=== PATIENT | male | born 1955 | race Caucasian/White ===

== ENCOUNTER 2020-05-13 14:27 | Emergency (ER) | payer MEDICARE ==
[~2020-05-13] VITALS: Ht 170.2 cm; Wt 136.7 kg
[2020-05-13 15:37] LABS: BASOPHILS # (AUTO) 0.1 X10'3 (0-0.2); BASOPHILS % (AUTO) 0.7 % (0-1); EOSINOPHILS # (AUTO) 0.5 X10'3 (0-0.9); EOSINOPHILS % (AUTO) 4.6 % (0-6); HEMATOCRIT 46.6 % (42.0-52.0); HEMOGLOBIN 15.8 g/dl (14.0-17.9); LYMPHOCYTES # (AUTO) 4.6 X10'3 (1.1-4.8); MEAN CORPUSCULAR HEMOGLOBIN 32.4 PG (27.0-31.0); MEAN CORPUSCULAR VOLUME 95.5 FL (78-98); MONOCYTES # (AUTO) 1.1 X10'3 (0-0.9); MONOCYTES % (AUTO) 10.4 % (2-12); NEUTROPHILS # (AUTO) 4.7 X10'3 (1.8-7.7); NEUTROPHILS % (AUTO) 42.3 % (42-75); PLATELET COUNT 213 X10'3 (140-440); RED BLOOD COUNT 4.88 X10'6 (4.70-6.10); RED CELL DISTRIBUTION WIDTH 13.9 % (11.5-14.5)
[2020-05-13 15:52] LABS: ALBUMIN 3.7 G/DL (3.4-5.0); ANION GAP 4 (8-16); BLOOD UREA NITROGEN 15 MG/DL (7-18); BUN/CREATININE RATIO 13.3 (5.4-32.0); CALCIUM 8.8 MG/DL (8.5-10.1); CHLORIDE 104 MMOL/L (99-107); CREATININE 1.13 MG/DL (0.60-1.10); GLUCOSE 113 MG/DL (70-104); POTASSIUM 4.7 MMOL/L (3.5-5.1); SODIUM 140 MMOL/L (135-145); TOTAL CARBON DIOXIDE 31.6 MMOL/L (24-32); TROPONIN I < 0.04 NG/ML (0.0-0.05); eGFR 65 ML/MIN
[2020-05-13 17:51] VITALS: BP 161/82
== END 2020-05-13 17:59 | disposition home or self-care (01) ==
LOC: ER 14:28
DX: R00.1 Bradycardia, unspecified (principal); R11.2 Nausea with vomiting, unspecified; R19.7 Diarrhea, unspecified
CPT/HCPCS: 36415; 71046; 80048; 84484; 85025; 93005; 93306; 99285

== ENCOUNTER 2020-12-07 14:09 | Inpatient (IN) | payer MEDICARE, OTHER ==
[~2020-12-07] VITALS: Ht 170.2 cm; Wt 129.4 kg
[2020-12-07] VITALS (9 sets, daily range): BP systolic 118–151; BP diastolic 80–112
[2020-12-07 14:49] LABS: BASOPHILS # (AUTO) 0.1 X10'3 (0-0.2); BASOPHILS % (AUTO) 0.5 % (0-1); EOSINOPHILS # (AUTO) 0.1 X10'3 (0-0.9); EOSINOPHILS % (AUTO) 0.9 % (0-6); HEMATOCRIT 46.2 % (42.0-52.0); HEMOGLOBIN 15.8 g/dl (14.0-17.9); LYMPHOCYTES # (AUTO) 3.5 X10'3 (1.1-4.8); LYMPHOCYTES % (AUTO) 23.5 % (21-51); MEAN CORPUSCULAR HEMOGLOBIN 32.5 PG (27.0-31.0); MEAN CORPUSCULAR HGB CONC 34.3 g/dL (33.0-36.5); MEAN CORPUSCULAR VOLUME 94.7 FL (78-98); MEAN PLATELET VOLUME 7.9 FL (7.4-10.4); MONOCYTES # (AUTO) 1.5 X10'3 (0-0.9); MONOCYTES % (AUTO) 9.9 % (2-12); NEUTROPHILS # (AUTO) 9.8 X10'3 (1.8-7.7); NEUTROPHILS % (AUTO) 65.2 % (42-75); PLATELET COUNT 241 X10'3 (140-440); RED BLOOD COUNT 4.88 X10'6 (4.70-6.10); RED CELL DISTRIBUTION WIDTH 13.6 % (11.5-14.5); WHITE BLOOD COUNT 15.1 X10'3 (4.5-11.0)
[2020-12-07 15:06] LABS: ALANINE AMINOTRANSFERASE 25 U/L (12-78); ALBUMIN 3.4 G/DL (3.4-5.0); ALBUMIN/GLOBULIN RATIO 0.8 (1.1-1.5); ALKALINE PHOSPHATASE 63 IU/L (46-116); AMYLASE 26 U/L (25-115); ANION GAP 9 (8-16); ASPARTATE AMINO TRANSFERASE 13 U/L (10-37); BILIRUBIN,TOTAL 1.2 MG/DL (0.1-1.0); BLOOD UREA NITROGEN 17 MG/DL (7-18); BUN/CREATININE RATIO 14.2 (5.4-32.0); CHLORIDE 100 MMOL/L (99-107); GLUCOSE 120 MG/DL (70-104); LIPASE 82 U/L (73-393); SODIUM 137 MMOL/L (135-145); TOTAL PROTEIN 7.9 G/DL (6.4-8.2); eGFR 60 ML/MIN
[2020-12-07 15:20] LABS: CLARITY,URINE CLEAR (Clear); COLOR,URINE YELLOW (Yellow); GLUCOSE, URINE NEGATIVE (Neg); KETONES,URINE NEGATIVE (Neg); LEUKOCYTE ESTERASE ,URINE NEGATIVE (Neg); NITRITES, URINE NEGATIVE (Neg); OCCULT BLOOD,URINE TRACE-INTACT (Neg); PROTEIN,URINE NEGATIVE (Neg)
[2020-12-07 15:43] LABS: UA COLLECTION TYPE VOIDED
[2020-12-07 15:52] LABS: MUCUS STRANDS MODERATE /LPF (Neg); SQUAMOUS EPITHELIAL CELL,UR FEW /LPF (FEW)
[2020-12-07 15:53] LABS: BACTERIA,URINE 1+ /HPF (Neg); RBC,URINE 0-2 /HPF (0-2); WBC,URINE 0-4 /HPF (0-4)
[2020-12-07] MEDS ORDERED: piperacillin/tazo 3.375gm/50ml 50 ML IV ONE (15:55)
[2020-12-07] MEDS: diatr meglu/diatrizoate 30ml oral sol.-(3 dose) bottle PO SCH ×2 (16:25→17:10)
[2020-12-07] MEDS ORDERED: IOHEXOL 12MG/ML oral solution 500 ML BOTTLE PO ONE (16:40)
[2020-12-07] MEDS ORDERED: morphine 2 MG/ML inj. syringe IV PRN ×2 (16:50→19:45)
[2020-12-07] MEDS ORDERED: HYDROcodone/acetaminophen 10/325mg tab PO PRN ×2 (16:50→22:30)
[2020-12-07] MEDS ORDERED: HYDROcodone/acetaminophen 5mg/325mg tablet PO PRN (16:50)
[2020-12-07] MEDS ORDERED: ondansetron/PF 4mg/2ml inj IV PRN ×3 (16:50→22:30)
[2020-12-07] MEDS ORDERED: acetaminophen 650mg rectal suppository RC PRN (16:50)
[2020-12-07] MEDS ORDERED: mag hydrox/Alum hydrox/simeth 30ml oral suspension PO PRN (16:50)
[2020-12-07] MEDS ORDERED: magnesium hydroxide 30ml (MOM) UD suspension PO PRN (16:50)
[2020-12-07] MEDS ORDERED: potassium Cl 20 mEq SR tablet PO PRN ×2 (16:50)
[2020-12-07] MEDS ORDERED: potassium Cl 40MEQ/1/2NS 520ml 520 ML IV PRN ×2 (16:50)
[2020-12-07] MEDS ORDERED: magnesium 4gm in 100ml NS 100 ML IV PRN (16:50)
[2020-12-07] MEDS ORDERED: acetaminophen 325mg tablet PO PRN ×2 (16:50)
[2020-12-07] MEDS ORDERED: bisacodyl 10mg suppository rectal RC PRN (16:50)
[2020-12-07] MEDS ORDERED: diphenhydrAMINE 25mg capsule PO PRN (16:50)
[2020-12-07] MEDS ORDERED: magnesium Cl slow-release 64mg tablet PO PRN (16:50)
[2020-12-07] MEDS ORDERED: magnesium 2GM in 50ml NS 50 ML IV PRN (16:50)
[2020-12-07] MEDS ORDERED: LOSA25TA41 PO (17:20)
[2020-12-07] MEDS ORDERED: ASPI-611 PO (17:20)
[2020-12-07] MEDS ORDERED: iohexol 300mg/ml 100ml inj. ONE (17:51)
[2020-12-07] MEDS: normal saline 1000ml 1,000 ML IV SCH (18:38)
[2020-12-07] MEDS ORDERED: INDOCYANINE GREEN 25 MG/10 ML VIAL IV ONE (19:40)
[2020-12-07] MEDS ORDERED: meperidine/PF 25mg/ml syringe IV PRN ×3 (19:45)
[2020-12-07] MEDS ORDERED: acetaminophen 1,000mg/100ml IV 100 ML IV PRN (19:45)
[2020-12-07] MEDS ORDERED: hydrALAZINE 20mg/ml inj. IV PRN (19:45)
[2020-12-07] MEDS ORDERED: morphine 4 MG/ML inj SYRINge IV PRN (19:45)
[2020-12-07] MEDS ORDERED: ringers solution, lacted 1,000 ML IV SCH (19:45)
[2020-12-07] MEDS ORDERED: labetalol 20mg/4ml (5mg/ml) syringe IV PRN (19:45)
[2020-12-07] MEDS ORDERED: proCHLORperazine 10 MG/2 ml inj IV PRN (19:45)
[2020-12-07] MEDS ORDERED: midazolam 1 mg/ML 2ml injection ONE (19:52)
[2020-12-07] MEDS ORDERED: famotidine/PF 10 mg/ml inj IV ONE (19:54)
[2020-12-07] MEDS ORDERED: acetaminophen 1,000mg/100ml IV 100 ML IV ONE (19:54)
[2020-12-07] MEDS ORDERED: fentaNYL /PF 50mcg/ml 5ml ampule ONE (19:55)
[2020-12-07] MEDS ORDERED: LIDOcaine 2% 5ml jelly ONE (19:57)
[2020-12-07] MEDS ORDERED: sevoflurane 250ml liquid IH ONE (20:00)
[2020-12-07] MEDS ORDERED: rocuronium 10mg/ml inj IV ONE ×2 (20:33→22:01)
[2020-12-07] MEDS ORDERED: ondansetron/PF 4mg/2ml inj ONE (20:33)
[2020-12-07] MEDS ORDERED: ePHEDrine 50MG/ML INJ. ONE (20:33)
[2020-12-07] MEDS ORDERED: dexamethasone sod phosphate 4mg/ml inj. ONE (20:33)
[2020-12-07] MEDS ORDERED: propofol inj 20 ML IV ONE ×2 (20:33)
[2020-12-07] MEDS ORDERED: 0.9 % SODIUM CHLORIDE 10 ML VIAL ONE (20:33)
[2020-12-07] MEDS ORDERED: ceFOXitin 1000 MG inj ONE ×2 (20:33)
[2020-12-07] MEDS ORDERED: LIDOcaine 2% (20mg/ml) 5ml vial ONE (20:33)
[2020-12-07] MEDS ORDERED: BUPIVAcaine/PF 2.5 mg/ml (0.25%) 30ml vial ONE (20:46)
[2020-12-07] MEDS ORDERED: sugammadex 200mg/2ml injection IV ONE (22:00)
--- NOTE | 2020-12-07 22:26 | NUR ---
Received from OR via BED, accompanied by Anesthesiologist DR JHAVERI and report given by Anesthesiologist. PT DROWSY, DENIES PAIN, ABDOMEN W/3 LAP SITES W/BANDAIDS CDI, PREET TO BULB SX RIGHT ABDOMEN W/SANGUINOUS DRAINAGE. Addendum: 12/07/20 at 2241 by Brit Aragon RN Amended: Links added.
--- NOTE | 2020-12-07 23:15 | NUR ---
Received report from YUE Perea. Awaiting patient arrival to the floor.
--- NOTE | 2020-12-07 23:26 | NUR ---
Report called to receiving nurse. PT PAIN TOLERABLE, NAUSEA SUBSIDED. Transferred via BED, 1 BAG OF Belongings AND GLASSES SENT W/PT TO ROOM 350B. RECEIVING RN AT BEDSIDE TO RECEIVE PT, BLL, CALL LIGHT GIVEN, SIDE RAILS UP X 2. Special Issues communicated to receiving nurse. YES. Addendum: 12/07/20 at 2339 by Brit Aragon RN Amended: Links added.
[2020-12-08] VITALS (11 sets, daily range): BP systolic 109–145; BP diastolic 72–89
[2020-12-08] MEDS: K and/or MAG REPLACEMENT MC SCH ×3 (00:04→20:00)
[2020-12-08] MEDS: diatr meglu/diatrizoate 30ml oral sol.-(3 dose) bottle PO SCH (00:04)
[2020-12-08] MEDS: piperacillin/tazo 3.375gm/50ml 50 ML IV SCH ×4 (00:30→23:20)
[2020-12-08] MEDS: normal saline 1000ml 1,000 ML IV SCH ×3 (00:34→23:20)
[2020-12-08] MEDS: morphine 2 MG/ML inj. syringe IV PRN ×3 (04:29→13:53)
[2020-12-08 06:28] LABS: BASOPHILS % (AUTO) 0.3 % (0-1); EOSINOPHILS % (AUTO) 0 % (0-6); HEMATOCRIT 43.5 % (42.0-52.0); HEMOGLOBIN 14.9 g/dl (14.0-17.9); LYMPHOCYTES # (AUTO) 1.3 X10'3 (1.1-4.8); LYMPHOCYTES % (AUTO) 12.7 % (21-51); MEAN CORPUSCULAR HEMOGLOBIN 32.6 PG (27.0-31.0); MEAN CORPUSCULAR HGB CONC 34.3 g/dL (33.0-36.5); MEAN CORPUSCULAR VOLUME 95.1 FL (78-98); MONOCYTES # (AUTO) 0.4 X10'3 (0-0.9); MONOCYTES % (AUTO) 3.7 % (2-12); NEUTROPHILS # (AUTO) 8.7 X10'3 (1.8-7.7); NEUTROPHILS % (AUTO) 83.3 % (42-75); PLATELET COUNT 212 X10'3 (140-440); RED BLOOD COUNT 4.58 X10'6 (4.70-6.10); RED CELL DISTRIBUTION WIDTH 13.2 % (11.5-14.5); WHITE BLOOD COUNT 10.4 X10'3 (4.5-11.0)
[2020-12-08 06:53] LABS: ALANINE AMINOTRANSFERASE 51 U/L (12-78); ALBUMIN 2.9 G/DL (3.4-5.0); ALBUMIN/GLOBULIN RATIO 0.7 (1.1-1.5); ALKALINE PHOSPHATASE 65 IU/L (46-116); ANION GAP 9 (8-16); ASPARTATE AMINO TRANSFERASE 48 U/L (10-37); BILIRUBIN,TOTAL 1.1 MG/DL (0.1-1.0); BLOOD UREA NITROGEN 16 MG/DL (7-18); BUN/CREATININE RATIO 14.5 (5.4-32.0); CALCIUM 8.5 MG/DL (8.5-10.1); CHLORIDE 103 MMOL/L (99-107); CHOL/HDL RATIO 3.8 (0.00-4.99); CHOLESTEROL 168 MG/DL (0-200); GLUCOSE 152 MG/DL (70-104); HDL CHOLESTEROL 44 MG/DL (35-60); LDL CHOLESTEROL 100 MG/DL (50-100); MAGNESIUM 2.3 MG/DL (1.5-2.4); PHOSPHORUS 3.8 MG/DL (2.3-4.5); POTASSIUM 4.6 MMOL/L (3.5-5.1); SODIUM 138 MMOL/L (135-145); TOTAL PROTEIN 7.3 G/DL (6.4-8.2); TRIGLYCERIDES 63 MG/DL (20-135); eGFR 67 ML/MIN
--- NOTE | 2020-12-08 06:55 | NUR ---
Patient in room [facility]. I have received report from Sushma TURNER and had the opportunity to ask questions and assume patient care.
--- NOTE | 2020-12-08 17:50 | NUR ---
patient seen by Dr perez and Dr maravilla, to continue on clear liquid diet and to not advance yet per dr perez. patient encouraged to ambulate. Ambulated x5 around floor with and staff. morphine given x2 for abdominal pain with effect. PREET drained 70 mls serosang drainage. Will continue to monitor.
--- NOTE | 2020-12-08 18:31 | NUR ---
Problems reprioritized. Patient report given, questions answered & plan of care reviewed with Sushma TURNER.
[2020-12-08] MEDS: lactobacillus rhamnosus 10,000 MMU CELLS/CAPSULE PO SCH (20:26)
[2020-12-09 06:04] LABS: BASOPHILS % (AUTO) 0.1 % (0-1); EOSINOPHILS # (AUTO) 0.1 X10'3 (0-0.9); EOSINOPHILS % (AUTO) 0.5 % (0-6); HEMATOCRIT 40.6 % (42.0-52.0); HEMOGLOBIN 13.7 g/dl (14.0-17.9); LYMPHOCYTES # (AUTO) 2.8 X10'3 (1.1-4.8); LYMPHOCYTES % (AUTO) 24.8 % (21-51); MEAN CORPUSCULAR HEMOGLOBIN 32.1 PG (27.0-31.0); MEAN CORPUSCULAR HGB CONC 33.7 g/dL (33.0-36.5); MEAN CORPUSCULAR VOLUME 95.3 FL (78-98); MEAN PLATELET VOLUME 8.1 FL (7.4-10.4); MONOCYTES # (AUTO) 0.9 X10'3 (0-0.9); MONOCYTES % (AUTO) 8.3 % (2-12); NEUTROPHILS # (AUTO) 7.6 X10'3 (1.8-7.7); NEUTROPHILS % (AUTO) 66.3 % (42-75); PLATELET COUNT 217 X10'3 (140-440); RED BLOOD COUNT 4.26 X10'6 (4.70-6.10); RED CELL DISTRIBUTION WIDTH 13.5 % (11.5-14.5); WHITE BLOOD COUNT 11.4 X10'3 (4.5-11.0)
[2020-12-09 06:27] LABS: ALANINE AMINOTRANSFERASE 47 U/L (12-78); ALBUMIN 2.6 G/DL (3.4-5.0); ALBUMIN/GLOBULIN RATIO 0.7 (1.1-1.5); ALKALINE PHOSPHATASE 53 IU/L (46-116); ANION GAP 5 (8-16); ASPARTATE AMINO TRANSFERASE 31 U/L (10-37); BILIRUBIN,TOTAL 0.6 MG/DL (0.1-1.0); BLOOD UREA NITROGEN 15 MG/DL (7-18); BUN/CREATININE RATIO 14.7 (5.4-32.0); CALCIUM 8.1 MG/DL (8.5-10.1); CHLORIDE 107 MMOL/L (99-107); CREATININE 1.02 MG/DL (0.60-1.10); GLUCOSE 109 MG/DL (70-104); MAGNESIUM 2.6 MG/DL (1.5-2.4); PHOSPHORUS 2.8 MG/DL (2.3-4.5); SODIUM 140 MMOL/L (135-145); TOTAL CARBON DIOXIDE 28.3 MMOL/L (24-32); TOTAL PROTEIN 6.4 G/DL (6.4-8.2); eGFR 73 ML/MIN
--- NOTE | 2020-12-09 06:38 | NUR ---
Problems reprioritized. Patient report given, questions answered & plan of care reviewed with YUE Denis and YUE Laird.
--- NOTE | 2020-12-09 06:43 | NUR ---
Patient in room [facility]. I have received report from Sushma TURNER and had the opportunity to ask questions and assume patient care.
--- NOTE | 2020-12-09 07:02 | NUR ---
Patient in room [facility] 350. I have received report from YUE Ordaz and had the opportunity to ask questions and assume patient care.
[2020-12-09 07:32] VITALS: BP 137/81
[2020-12-09] MEDS ORDERED: aspirin 81mg tablet.DR PO SCH (08:00)
[2020-12-09] MEDS ORDERED: heparin, porcine 5000 units/ml vial SQ SCH (08:00)
[2020-12-09] MEDS: K and/or MAG REPLACEMENT MC SCH (08:00)
[2020-12-09] MEDS ORDERED: losartan 25mg tablet PO SCH (08:00)
[2020-12-09] MEDS: piperacillin/tazo 3.375gm/50ml 50 ML IV SCH (08:28)
[2020-12-09] MEDS: lactobacillus rhamnosus 10,000 MMU CELLS/CAPSULE PO SCH (08:30)
[2020-12-09] MEDS: normal saline 1000ml 1,000 ML IV SCH (09:40)
[2020-12-09 12:00] VITALS: BP 119/71
[2020-12-09] MEDS ORDERED: LACT1CAP26 PO (13:24)
[2020-12-09] MEDS ORDERED: AMOX-419 PO (13:24)
--- NOTE | 2020-12-09 14:41 | NUR ---
Patient discharged to home with spouse accompanying as his funeral limousine driver. Patient taken to the front door by wheelchair and ambulated to his vehicle on his own. Discharge instructions given to both patient and spouse, given the opportunity to ask and have questions answered. Patient scripts called in to [facility] on [address], [place] script given to spouse to walk in to the pharmacy. Patient stable, alert, and oriented x4. Sent with all belongings and wound care materials needed. Patient to follow up with Dr Escobar next Friday and PCP within a few days. Patient to make his own appts.
--- NOTE | 2020-12-09 15:41 | NUR ---
Student documentation: I have reviewed and agree with all interventions, assessments performed and documented by kasi TURNER.
--- NOTE | 2020-12-12 11:59 | NUR ---
CASE MANAGEMENT DISCHARGE FOLLOW UP: Spoke with pt via telephone. Reports that he is doing pretty well, states only has a little pain with coughing/positional changes, some intermittent nausea, states getting around easier than before surgery; denies CP, SOB, fever/chills, s/sx infection, vomiting. had a BM when he got home on Friday (12/09/20). Pt states that appetite is improving slowly, nibbling on foods/trying to not overdo. Verbalizes understanding of s/sx requiring further evaluation/emergent assistance. Verbalizes understanding of new and current medications, was not able to get Rx for [place] filled at his pharmacy, but that he does not think that he needs it anyway. Verbalizes compliance with MD discharge instructions, pt bracing abdomen when standing/changing positions/coughing, no heavy lifting x2 weeks. Verbalizes understanding of the importance in making/keeping follow-up appointments, will see surgeon tomorrow afternoon, will call to set up appt with PMD. Pt states that staff at hospital were very accommodating and helped to make hospitalization about as pleasant as it could be. States no further questions/concerns at this time.
== END 2020-12-09 14:33 | disposition home or self-care (01) | DRG 418 ==
LOC: ER 14:10 → ED HOLD 16:46 → SUR 3N 23:01
PROVIDERS: ADMIT Family Medicine; ATTEND Family Medicine
PROC: 8E0W4CZ Robotic Assisted Procedure of Trunk Region, Percutaneous Endoscopic Approach (ICD-10-PCS; 2020-12-07)
PROC: BW211ZZ Computerized Tomography (CT Scan) of Abdomen and Pelvis using Low Osmolar Contrast (ICD-10-PCS; 2020-12-07)
PROC: 0FT44ZZ Resection of Gallbladder, Percutaneous Endoscopic Approach (ICD-10-PCS; principal; 2020-12-07 20:00)
DX: K80.00 Calculus of gallbladder with acute cholecystitis without obstruction (principal); Z68.41 Body mass index [BMI] 40.0-44.9, adult; E66.01 Morbid (severe) obesity due to excess calories; Z20.822 Contact with and (suspected) exposure to COVID-19; I10 Essential (primary) hypertension; Z80.0 Family history of malignant neoplasm of digestive organs; Z86.16 Personal history of COVID-19; Z87.891 Personal history of nicotine dependence
CPT/HCPCS: 36415; 74177; 76700; 80053; 80061; 81001; 82150; 83036; 83605; 83690; 83735; 84100; 84145; 85025; 86885; 86900; 86901; 87040; 87081; 87635; 93005; 96361; 96365; 96366; 96372; 96375; 99285; A4215; A4618; A6402; A7000; C9399; G0378; J0131; J0694; J0780; J1100; J1644; J2001; J2175; J2250; J2270; J2405; J2543; J2704; J3010; J3490; J7030; J7120; Q9963; Q9967